=== PATIENT | female | born 1985 | race Caucasian/White ===

== ENCOUNTER 2020-09-23 15:55 | Outpatient (CLI) | payer OTHER, SELFPAY ==
--- NOTE | ~2020-09-23 | XR_ITS ---
XR lumbar spine 2-3V DATE: 09/23/2020 16:31 INDICATION: Right low back pain radiating to calf for 4 weeks. No injury. TECHNIQUE: AP, lateral, coned lateral lumbosacral views COMPARISON: None FINDINGS: Normal alignment of lumbar spine. No fracture or bone destruction, spondylolisthesis. The i ncluded lower thoracic and lumbar pedicles are intact. There is mild degenerative disc disease at T11-12. There is moderate relative diminished height at L5-S1 interspace compared to the normal lumbar inters paces. The sacroiliac joints are normal. IMPRESSION: Moderate relative diminished height at L5-S1 space Reviewed, dictated and finalized at location A.
--- NOTE | ~2020-09-23 | US_ITS ---
US venous doppler LE RT DATE: 09/23/2020 16:39 INDICATION: Right calf pain TECHNIQUE: Real-time and color flow imaging and Doppler analysis of the right lower extremity veins COMPARISON: None FINDINGS: The right greater saphenous vein is patent. There is spontaneous and phasic flow and normal augmentation and color flow signal and normal compression of the veins of the right lower extremity. IMPRESSION: No evidence of deep venous thrombosis of right leg Reviewed, dictated and finalized at Location [facility]. Reviewed, dictated and finalized at location A.
== END 2020-09-23 15:56 | disposition home or self-care (01) ==
LOC: ANHIMG 16:07
PROVIDERS: PCP Physician Assistant; Visit Provider Physician Assistant
DX: M79.661 Pain in right lower leg (principal); M54.16 Radiculopathy, lumbar region
CPT/HCPCS: 72100; 93971

== ENCOUNTER 2021-08-25 16:38 | Outpatient (RCR) | payer OTHER, SELFPAY ==
[2021-07-16 09:53] VITALS: BP 111/66; PULSE 80
[2021-07-20 16:22] VITALS: BP 106/68; PULSE 97
[2021-07-27 16:50] VITALS: BP 110/69; PULSE 87
[2021-08-02 17:23] VITALS: BP 116/64; PULSE 87
[2021-08-12 13:01] VITALS: BP 114/71; PULSE 78
[2021-08-16 16:41] VITALS: BP 110/71; PULSE 95
[2021-08-16 18:56] VITALS: BP 110/71; PULSE 95
[2021-08-25 17:02] VITALS: BP 118/65; PULSE 82
== END 2021-10-14 23:59 | disposition home or self-care (01) ==
LOC: ANHOBOP 16:38
PROVIDERS: PCP Physician Assistant; Visit Provider Obstetrics & Gynecology
DX: O24.419 Gestational diabetes mellitus in pregnancy, unspecified control (principal); Z3A.32 32 weeks gestation of pregnancy; Z3A.33 33 weeks gestation of pregnancy; Z3A.34 34 weeks gestation of pregnancy; Z3A.35 35 weeks gestation of pregnancy; Z3A.36 36 weeks gestation of pregnancy; Z3A.37 37 weeks gestation of pregnancy; Z3A.38 38 weeks gestation of pregnancy
CPT/HCPCS: 59025

== ENCOUNTER 2021-08-29 05:04 | Inpatient (IN) | payer OTHER, SELFPAY ==
[2021-08-29] VITALS (59 sets, daily range): BP systolic 51–159; BP diastolic 23–131; PULSE 63–140; RESP 16–18; TEMP 36.4–37.5; O2SAT 97–100; BMI 27.3
--- OUTSIDE RECORDS SUMMARY | 2021-08-29 05:13 | XMS_ITS ---
:1985 Author Care Team Providers Name Role Phone Bronwyn Beasley Primary Care Provider Unavailable Allergies Code Code System Name Reaction Severity Status Onset NKDA ? Medications Name Status Start Date Stop Date ? ? azithromycin 250 mg tablet Completed ? 12/27 fluconazole 150 mg tablet Completed ? 2019 Low-Ogestrel (28) 0.3 mg-30 mcg tablet Active ? Not available ofloxacin 0.3 % eye drops Completed ? 2019 omeprazole 20 mg capsule,delayed Completed ? 12/28/2019 release Problems Name Status Onset Date Source ? Anemia Active 12/28/2019 ? Procedures Date Name Performed by ? ? Extraction of [place] Tooth Information n ot available Notes: 2014 ? Upper Gi Endoscopy Performed Information not available Notes: ~2018 Results Lab Results Date Name Specimen Result Interpretation Description Value Range Status Address ? 01/07/2020 Lipid ? Cholesterol, 174 mg/dL <200 Fin al [facility], Total mg/dL Diagnostic s - Blood [place]: [id number] [address] ? ? Low HDL 41 mg/dL > or = Final [facility] Cholesterol 50 Diagn ostics
--- OUTSIDE RECORDS SUMMARY | 2021-08-29 05:13 | XMS_ITS ---
:1985 Author Care Team Providers Name Role Phone Bronwyn Beasley Primary Care Provider Unavailable Allergies Code Code System Name Reaction Severity Status Onset NKDA ? Medications Name Status Start Date Stop Date ? ? amoxicillin 875 mg-potassium clavulanate 125 mg tablet Active ? Not available TAKE 1 TABLET BY MOUTH EVERY 12 HOURS azithromycin 250 mg tablet Completed ? 12/27 cephalexin 500 mg capsule Completed ? 2018 Cryselle (28) Completed 01/15/2019 07/10/2019 famotidine 40 mg tablet Completed ? 07/10/19 20 Take 1 tablet every day by oral route with meals. fluconazole 150 mg tablet Completed ? 2019 Jencycla 0.35 mg tablet Completed ? 01/16/20 19 Low-Ogestrel (28) 0.3 mg-30 mcg Completed ? 09/23/2020 tablet methocarbamol 750 mg tablet Active ? Not available TAKE 1 TABLET BY MOUTH THREE TIMES DAILY NEEDED moxifloxacin 0.5 % eye drops Active ? Not available INSTILL 1 DROP INTO AFFECTED EYE(S) THREE TIMES DAILY ofloxacin 0.3 % eye drops Completed ? 2019 omeprazole 20 mg Completed ? 01/15/2019 capsule,delayed release prednisone 50 mg tablet Completed ? 09/24/19 21 Take 1 tablet every day by oral route for 5 days. Problems Name Status Onset Date Source ? Heartburn Active 07/09/2019 History Anemia Active 12/28/2019 History Procedures Date Name Performed by ?
--- OUTSIDE RECORDS SUMMARY | 2021-08-29 05:13 | XMS_ITS ---
:1985 Author Care Team Providers Name Role Phone Bronwyn Beasley Primary Care Provider Unavailable Allergies Code Code System Name Reaction Severity Status Onset NKDA ? Medications Name Status Start Date Stop Date ? ? azithromycin 250 mg tablet Completed ? 06/19 TAKE 2 TABLETS BY MOUTH ON DAY 1 AND TH EN TAKE 1 TABLET BY MOUTH ONCE A DAY ON DAY 2 THROUGH DAY 5 cephalexin 500 mg capsule Completed ? 2018 Cryselle (28) Completed ? 07/10/2019 famotidine 40 mg tablet Completed ? 07/10/19 20 Take 1 tablet every day by oral route with meals. fluconazole 150 mg tablet Completed ? 2019 Jencycla 0.35 mg tablet Completed ? 01/16/20 19 Low-Ogestrel (28) 0.3 mg-30 mcg tablet Active ? Not available ofloxacin 0.3 % eye drops Completed ? 2019 omeprazole 20 mg capsule,delayed Completed ? 01/15/2019 release prednisone 50 mg tablet Active ? Not avai lable Take 1 tablet every day by oral route for 5 days. Problems Name Status Onset Date Source ? Heartburn Active 07/09/2019 ? Procedures Date Name Performed by ? 03/11/2019 XR, [facility], [facility] [address] [place] [address] ([address]) 06/24/2019 US, Gallbladder Farhan
--- NOTE | 2021-08-29 05:34 | LDADM ---
This patient, Bryanna Davenport, was admitted to Labor/Delivery/Recovery 104 on 08/29/21 at 05:04. Plans for labor, pain management and were discussed with patient. Patient/family oriented to hospital policies and general routines including ID bracelet, bed and alarms, visiting hours, pain management, procedures, bathroom and other care routines, personal items, smoking policy, room service/diet and guest tray routines, security routines, and visiting hours. Patient/Family are encouraged to report perceived risks to care and to ask questions if they do not understand what they are told or what they should do. See OBIX for further documentation.
[2021-08-29 05:46] LABS: Basophils Percent Auto 0.3 % (0.2-1.2); Eosinophils Absolute Auto 0.1 K/mm3 (0-0.3); Eosinophils Percent Auto 1.3 % (0-4.4); Hematocrit 37.2 % (37.0-47.0); Hemoglobin 12.1 g/dL (12.0-15.0); Immature Granulocyte Absolute 0.05 K/mm3 (0.00-0.031); Immature Granulocyte Percent A 0.6 % (0-0.5); Lymphocytes Absolute Auto 1.92 K/mm3 (0.9-3.2); Lymphocytes Percent Auto 22.2 % (18.3-44.2); Mean Corpuscular HGB Conc 32.5 g/dl (32-36); Mean Corpuscular Hemoglobin 28.3 pg (26-34); Mean Corpuscular Volume 87.1 fl (80-100); Mean Platelet Volume 10.1 fl (7.4-10.4); Monocytes Absolute Auto 0.6 K/mm3 (0.1-0.6); Monocytes Percent Auto 7.2 % (2.6-8.5); Neutrophils Absolute Auto 5.9 K/mm3 (1.3-6.7); Neutrophils Percent Auto 68.4 % (45.5-73.1); Platelet Count Result 188 k/mm3 (150-375); Red Blood Count 4.27 M/mm3 (4.2-5.4); Red Cell Distribution Width 19.7 % (11.5-14.5); White Blood Count 8.6 K/mm3 (4.5-10.0)
[2021-08-29] MEDS: OXYTOCIN 30 UNITS/NS 500 ML 30 UNITS/500 ML BAG IV CONT (05:47)
[2021-08-29] MEDS: LACTATED RINGERS 1,000 ML 125 ML IV CONT (05:48)
--- NOTE | 2021-08-29 06:30 | P.PNAN_ITS ---
Anes - Eval Pre Procedure Procedure: labor epidural Date/Time: 08/29/21 06:30 Surgeon: amanda Preop Diagnosis: pain during labor Pre Op Diagnosis: IOL Patient Data Age: 35 Gender: F Height: 1.57 m Weight: 68 kg Last Vital Signs Pulse 88 08/29/21 06:15 BP 106/75 08/29/21 06:15 Allergies Allergy/AdvReac Type Severity Reaction Status Date / Time No Known Allergies Allergy Verified 11/08/15 13:53 Home Medications Medication Instructions Recorded Confirmed Type glyburide 2.5 mg PO ONCE 08/29/21 08/29/21 History Laboratory Tests 08/29/21 08/29/21 05:33 05:33 WBC 8.6 K/mm3 K/mm3 (4.5-10.0) RBC 4.27 M/mm3 M/mm3 (4.2-5.4) Hgb 12.1 g/dL g/dL (12.0-15.0) Hct 37.2 % % (37.0-47.0) MCV 87.1 fl fl (80-100) MCH 28.3 pg pg (26-34) MCHC 32.5 g/dl g/dl (32-36) RDW 19.7 % H % (11.5-14.5) Plt Count 188 k/mm3 k/mm3 (150-375) MPV 10.1 fl fl (7.4-10.4) Immature Gran % (Auto) 0.6 % H % (0-0.5) Neut % (Auto) 68.4 % % (45.5-73.1) Lymph % (Auto) 22.2 % % (18.3-44.2) [place] % (Auto) 7.2 % % (2.6-8.5) Eos % (Auto) 1.3 % % (0-4.4) Baso % (Auto) 0.3 % % (0.2-1.2) Lymph # (Auto) 1.92 K/mm3 K/mm3 (0.9-3.2) [place] # (Auto) 0.6 K/mm3 K/mm3 (0.1-0.6) Eos # (Auto) 0.1 K/mm3 K/mm3 (0-0.3) Baso # (Auto) 0.0 K/mm3 K/mm3 (0.0-0.1) Abs Immat Gran (auto) 0.05 K/mm3 H K/mm3 (0.00-0.031) Absolute Neuts (auto) 5.9 K/mm3 K/mm3 (1.3-6.7) Absolute Nucleated RBC 0.0 K/mm3 K/mm3 (0.0-0.012) Nucleated RBC % 0.0 % % (0.0-0.2) RPR Pending Patient hx anesthesia problems: none Family hx anesthesia problems: none Results Review: All pre-operative results and documents have been reviewed as part of the pre-operative evaluation. [facility] Past Medical History Medical History (Updated 08/29/21 @ 06:31 by Mehnaz De Jesus CRNA) Gestational diabetes mellitus (GDM) affecting Intrauterine Family History Family History Grandparent Family history of malignant neoplasm of brain Family history of malignant neoplasm of breast Social History Social History (Updated 08/29/21 @ 05:40 by Elizabeth Mckenzie, RN) Smoking status: Never smoker Second hand tobacco smoke exposure: No Alcohol intake: former Substance use: never Substance use type: does not use Living arrangements: with family Occupation/Education: occupation Gender identity (if verbalized by the patient): Female Sexual Orientation (if Verbalized by the Patient): Straight or Heterosexual Spiritual care concerns: No Agree to blood products: Yes Exam Day of Procedure 08/29/21 06:30
[2021-08-29 06:45] LABS: Rapid Plasma Reagin Non-Reactive (NonReactive)
[2021-08-29 07:00] LABS: Glucose Point of Care 98 mg/dl (65-105)
--- NOTE | 2021-08-29 10:19 | P.HP_ITS ---
Obstetrics - Admit Note Admission Note: record reviewed. Additions to the history and/or subsequent changes in the physical findings follow. 35 y/o at 39 3/7 weeks here for induction of labor. GDM, well- controlled. GBS neg. AVSS NST reactive TOCO: contractions every 4-5 min ABD soft, nontender, gravid, vertex EXT nontender Cervix 3/50/-2. AROM with clear fluid. Accuchecks wnl. A: IUP at term with favorable cervix, GDM P: Oxytocin. Monitor blood glucose. Anticipate .
[2021-08-29 11:41] LABS: Glucose Point of Care 78 mg/dl (65-105)
[2021-08-29] MEDS: LIDOCAINE HCL 1% PF 30 ML VIAL (13:00)
--- NOTE | 2021-08-29 13:12 | PM.OBPRVD ---
OB - Delivery Note Procedure Delivery date: 08/29/21 Procedure: Induction of labor with Events: Gestational Diabetes Induction method: Per Pitocin Protocol Delivery augmentation: Rupture of Membranes Delivery monitor: External FHT and External Uterine Route of delivery: Laceration Description: Perineal - 2nd Degree Delivery repair: vicryl (3-0) Specimen: Yes (cord blood, placenta) Quantitative Blood Loss (ml): 185 Anesthesia type: Epidural Disposition: PACU Complications: None Narrative: 35 y/o at 39 3/7 weeks gestation who presented to the hospital for induction of labor. Oxytocin was administered intravenously. Accuchecks were normal. Amniotomy was performed with return of clear fluid. She received an epidural for pain control. Her labor progressed rapidly and her cervix dilated completely. She pushed with good effort and delivered the infant's head to the perineum. A loose nuchal cord was reduced and the body delivered. The nose and mouth were bulb suctioned. After a delay, the cord was clamped and cut. The was handed off the field. Cord blood was collected. The placenta delivered spontaneously and was grossly normal in appearance. The usual 3 vessel cord was noted. A second degree midline perineal laceration was sustained. This was reapproximated using 3 0 Vicryl in the usual layered fashion. Excellent hemostasis resulted as did excellent reapproximation of the normal anatomy. Needle and instrument counts were correct. The patient was taken to recovery room in stable condition. The infant went to the nursery in stable condition. I was present and scrubbed for the entire delivery. Baby Date of : 08/29/21 Time of : 12:51 Weeks of gestation at delivery: 39 gender: Female Weight (pounds): 7 Weight (ounces): 14 presentation: vertex position: Left Occiput Anterior Placenta delivery description: Spontaneous and Normal Configuration Cord Vessel Description: 3 Vessels, Nuchal Cord and Delayed Cord Clamping score one minute: 8 score five minutes: 9
--- NOTE | 2021-08-29 13:16 | P.DS_ITS ---
DS: Admitting Diagnosis Discharge Date 08/30/21 Admitting Diagnosis IUP at 39 3/7 weeks A2DM DS: Discharge Diagnosis Discharge Diagnosis (1) Gestational diabetes mellitus (GDM) affecting : Code(s): O24.419 - Gestational diabetes mellitus in , unspecified control Status: Acute (2) Intrauterine : Code(s): Z34.90 - Encounter for supervision of normal , unspecified, unspecified trimester Status: Acute (3) (normal spontaneous vaginal delivery): Code(s): O80 - Encounter for full-term uncomplicated delivery Status: Acute OB - DS: Summary OB Procedures : None OB Procedures Intrapartum: Spontaneous Vag Delivery OB Procedures: : None DS: Data Data Completed and Pending Labs on day of discharge: Labs from last 24 hours 08/29/21 08/29/21 08/29/21 11:38 06:57 05:33 WBC RBC Hgb Hct MCV MCH MCHC RDW Plt Count MPV Immature Gran % (Auto) Neut % (Auto) Lymph % (Auto) [place] % (Auto) Eos % (Auto) Baso % (Auto) Lymph # (Auto) [place] # (Auto) Eos # (Auto) Baso # (Auto) Abs Immat Gran (auto) Absolute Neuts (auto) Absolute Nucleated RBC Nucleated RBC % POC Capillary Glucose 78 98 RPR Blood Type A Positive Antibody Screen Negative 08/29/21 08/29/21 05:33 05:33 WBC 8.6 RBC 4.27 Hgb 12.1 Hct 37.2 MCV 87.1 MCH 28.3 MCHC 32.5 RDW 19.7 H Plt Count 188 MPV 10.1 Immature Gran % (Auto) 0.6 H Neut % (Auto) 68.4 Lymph % (Auto) 22.2 [place] % (Auto) 7.2 Eos % (Auto) 1.3 Baso % (Auto) 0.3 Lymph # (Auto) 1.92 [place] # (Auto) 0.6 Eos # (Auto) 0.1 Baso # (Auto) 0.0 Abs Immat Gran (auto) 0.05 H Absolute Neuts (auto) 5.9 Absolute Nucleated RBC 0.0 Nucleated RBC % 0.0 POC Capillary Glucose RPR Non-reactive Blood Type Antibody Screen Discharge Plan Discharge Attending physician on discharge: Cortez Peralta Discharging Clinician: Cortez Peralta Patient Disposition: Home, Self-Care Activity: pelvic rest Diet: regular Discharge Instructions: Call or return if temperature above 100.4? F, increased abdominal pain, increased vaginal bleeding or any new problems. Stand Alone Forms: General Discharge Information Follow-up/Referrals: Cortez Peralta MD [Physician] - 6 Weeks Discharge Medications: New ibuprofen 600 mg tablet 600 mg PO Q6H PRN (Reason: cramps) Qty: 30 RF: 0 Discontinued glyburide 5 mg tablet 2.5 mg PO ONCE RF: 0 Date of admission: 08/29/21 05:04 Primary Care Provider: Ramos,Bronwyn Admitting Provider: Cortez Peralta Attending physician on admission: Cortez Peralta Condition: Stable
[2021-08-29] MEDS: OXYTOCIN 30 UNITS/NS 500 ML 30 UNITS/500 ML BAG 125 UNITS IV CONT (13:26)
--- NOTE | 2021-08-29 15:39 | PC.NURSE ---
Patient transferred to post room #283 per wheelchair from labor and delivery. Support person present. Oriented to unit, room, information board, rooming in, admission packet and security measures. Patient verbalizes understanding.
[2021-08-29] MEDS: IBUPROFEN 600 MG TABLET PO (23:37)
[2021-08-30 04:30] VITALS: BP 112/67; PULSE 74; RESP 18; TEMP 36.6; O2SAT 98
[2021-08-30 05:04] LABS: Hematocrit 33.2 % (37.0-47.0); Hemoglobin 10.6 g/dL (12.0-15.0)
[2021-08-30 07:13] VITALS: BP 116/68; PULSE 67; RESP 16; TEMP 36.2; O2SAT 99
[2021-08-30] MEDS: DOCUSATE SODIUM 100 MG CAPSULE PO ×2 (07:20→17:02)
[2021-08-30] MEDS: IBUPROFEN 600 MG TABLET PO ×2 (07:20→17:02)
[2021-08-30] MEDS: MULTIVIT/MIN/PREN/FOL AC/IRON TABLET 1 TAB PO (07:20)
--- NOTE | 2021-08-30 07:21 | PC.NURSE ---
On 08/30/21, the student, Miryam Llanes, provided care and completed [facility] documentation on this patient. I have reviewed the student's documentation and agree with the findings.
--- NOTE | 2021-08-30 08:24 | PC.NURSE ---
0810 - Consulted with patient to assess needs related to . Mother led conversation with her experience with feeding baby so far. Mother works well with her . Reviewed good handwashing when working with , breast, nipples and how to protect the nipples with a deep latch. Encouraged understanding the benefits of skin to skin, responding to feeding cues, frequencies of feeding 8-12 times in 24 hours (approximately 2-3 hours), duration of feedings, milk production, intake/output feeding sheet and signs of adequate intake. Discussed stimulating with skin to skin, hand expressing colostrum, touch and talking to infant to encourage eating at the breast. Reviewed positioning and alignment, supporting breast, off-centered (asymmetrical latch) and leading with the chin with big open wide gape. latched optimally to the right breast in cradle position independently. Education given to mother of how to visualize suck/swallow ratios and drinking at the breast. Infant was able to maintain latch without discomfort to mother. Nipple care with using a optimal big wide open deep latch. Resources used to facilitate learning were used from the visual handout and mom and baby guide. RN Mother voiced understanding responding to feeding cues, may need to stimulating infant approximately 2-3 hours from the start of the last feeding, calling for assistance if the does not latch or there discomfort . Reported to primary RN.
--- NOTE | 2021-08-30 08:58 | WPDANLDPN2 ---
Anes-Prog Note L&D Date/Time: 08/30/21 08:58 Comfortable throughout: labor and delivery Neuraxial method: epidural Epidural/Spinal procedure site: clean & non-tender Neuro status: Neuro function grossly intact. Cardiovascular status: normal Respiratory status: normal Airway patency: baseline Mental status: baseline Post-Op hydration status: normal Vital Signs: Last Vital Signs Temp 36.2 C L 08/30/21 07:13 Pulse 67 08/30/21 07:13 Resp 16 08/30/21 07:13 BP 116/68 08/30/21 07:13 Pulse Ox 99 08/30/21 07:13 Pain score (VAS): 3 I/O: Intake & Output 08/29/21 08/30/21 08/30/21 23:59 07:59 15:59 Intake Total 500 Balance 500 Post-procedural complaints: none Patient feedback: Patient satisfied with anesthetic care.
[2021-08-30 12:07] VITALS: BP 105/69; PULSE 71; RESP 18; TEMP 36.7; O2SAT 98
--- NOTE | 2021-08-30 15:45 | PM.OBPNVD ---
OB - PN: Subj Subjective Date/time seen: 08/30/21 15:45 Narrative: Pain OK. Would like to go home. OB - PN: Obj Data Labs CBC & Chem 7: 08/30/21 04:42 Labs: Laboratory Results - last 24 hr 08/30/21 04:42 Hgb 10.6 L Hct 33.2 L OB - PN A/P Plan Comments: A: PPD#1, doing well. P: Home to f/u 6 weeks. Exam Psych: Other: AVSS ABD soft, nontender, fundus firm EXT nontender
[2021-08-31 09:38] VITALS: BP 112/70; PULSE 66; RESP 20; TEMP 36.8; O2SAT 100
== END 2021-08-30 17:26 | disposition home or self-care (01) | DRG 807 ==
LOC: ANHLDR 13:19 → ANHOB2 15:48
PROVIDERS: Admitting Provider Obstetrics & Gynecology; PCP Physician Assistant; Visit Provider Obstetrics & Gynecology
DX: O24.429 Gestational diabetes mellitus in childbirth, unspecified control (principal); Z37.0 Single live birth; Z3A.39 39 weeks gestation of pregnancy; O62.3 Precipitate labor; O70.1 Second degree perineal laceration during delivery; O69.81X0 Labor and delivery complicated by cord around neck, without compression, not applicable or unspecified
CPT/HCPCS: 36415; 82948; 85014; 85018; 85025; 86592; 86850; 86900; 86901; 88307; A9270; J2590; J2795; J7120

== ENCOUNTER 2022-08-11 13:56 | Emergency (ER) | payer OTHER, SELFPAY ==
[2022-08-11 14:08] VITALS: BP 133/65; PULSE 94; RESP 16; TEMP 37.6; O2SAT 99
--- NOTE | 2022-08-11 14:36 | ED.URI ---
HPI - URI/Sore Throat General Chief Complaint: Upper Respiratory Infection Stated Complaint: fever, sore throat Time Seen by Provider: 08/11/22 14:15 Source: patient, RN notes reviewed and old records reviewed Mode of arrival: ambulatory Limitations: no limitations History of Present Illness HPI Narrative: 36 year old patient presents to [facility] care with complaints of sore throat and fevers and body aches since . Patient reports that her family was treated for strep throat 3 weeks ago with Amoxicillin for 10 days and she started again with the sore throat again o with fevrs and body aches and her son also tested positive for strep MD elicited complaint: fever, sore throat and other (body aches) Pertinent past history: other (strep throat) Related Data Allergies Allergy/AdvReac Type Severity Reaction Status Date / Time No Known Allergies Allergy Verified 08/11/22 14:03 Review of Systems Review of Systems: CONSTITUTIONAL:reports malaise, chills, sweats, or fever. EYES: Denies visual changes, redness, or discharge. ENT: Reports rhinorrhea, congestion, sinus pain, no otalgia positive for sore throat. CARDIOVASCULAR: Denies chest pain, palpitations, or edema. RESPIRATORY: Reports cough.? Denies dyspnea. GASTROINTESTINAL: Denies abdominal pain, nausea, vomiting, diarrhea SKIN: Denies rash or itching. MUSCULOSKELETAL: Denies myalgia. NEUROLOGIC: Denies headache. All systems reviewed & are unremarkable except as noted in HPI and below PMFSH Past Medical History Medical History Gestational diabetes mellitus (GDM) affecting Intrauterine Family History Family History Grandparent Family history of malignant neoplasm of brain Family history of malignant neoplasm of breast Social History Social History Smoking status: Never smoker Second hand tobacco smoke exposure: No Alcohol intake: former Substance use: never Substance use type: does not use Living arrangements: with family Occupation/Education: occupation Gender identity (if verbalized by the patient): Female Sexual Orientation (if Verbalized by the Patient): Straight or Heterosexual Spiritual care concerns: No Agree to blood products: Yes Comments At time of signature, agree with nursing past medical, surgical, social and family history. There is no relevant family history pertinent to the presenting complaint Exam Narrative: GENERAL: Well-appearing, well-nourished, and in no acute distress. HEAD: Normocephalic EYES: PERRLA, conjunctivae clear ENT: Nares clear, turbinates edematous and erythematous, clear discharge. Mucous membranes moist. TM pearly morocho with dull light reflex bilaterally; no tragal tenderness. Oropharynx erythematous without lesions. Tonsils red enlarged and without exudate, no drooling, no hoarseness, no trismus, uvula midline. NECK: Supple. lymphadenopathy CHEST: Clear to auscultation, breath sounds equal. No wheezing, rhonchi, rales, or stridor. No respiratory distress, speaks in full sentences. rare cough with SAO2 99% on room air HEART: Regular rate and rhythm. No murmur heard. SKIN: Warm, dry, no rash. NEURO: Alert and oriented x3. PSYCH: Normal mood and affect Course Course Emergency Course: Patient is aware of diagnosis, understands and agrees to treatment plan.? Anticipatory guidance given.? Patient agrees to follow-up as directed and is aware of reasons to seek care at the emergency department. Portions of this record may have been created with voice recognition software Level of Care: Express Care Visit Vital Signs Vital signs: Vital Signs Temperature 37.6 C 08/11/22 14:08 Pulse Rate 94 08/11/22 14:08 Respiratory Rate 16 08/11/22 14:08 Blood Pressure 133/65
== END 2022-08-11 14:40 | disposition home or self-care (01) ==
PROVIDERS: Emergency Provider Registered Nurse; PCP Physician Assistant
DX: J02.0 Streptococcal pharyngitis (principal)
CPT/HCPCS: 87880; 99213; G0463

== ENCOUNTER 2023-09-12 17:18 | Emergency (ER) | payer OTHER, SELFPAY ==
--- NOTE | 2023-09-12 17:20 | ED.URI ---
HPI - URI/Sore Throat General Chief Complaint: Upper Respiratory Infection Stated Complaint: Sore Throat/Stomach Pain/Headache Time Seen by Provider: 09/12/23 17:20 Source: patient Mode of arrival: ambulatory Limitations: no limitations History of Present Illness HPI Narrative: Patient is a 37-year-old female who presents with sore throat, abdominal pain and headache that started yesterday. Patient has taken [id number] medicine with no relief. Reports son and recently diagnosed with strep having the same symptoms. Denies any fever, chills, nausea, vomiting, diarrhea. Related Data Allergies Allergy/AdvReac Type Severity Reaction Status Date / Time No Known Allergies Allergy Verified 09/12/23 17:25 Review of Systems Review of Systems: All systems reviewed & are unremarkable except as noted in HPI and below Constitutional: Constitutional: Denies body ache(s), Denies chills, Denies fatigue, Denies fever(s), Reports headache(s), Denies malaise and Denies weakness Eyes: Eyes: Denies blurry vision, Denies itchy eyes and Denies loss of vision ENT: Denies otalgia, Denies headache(s), Denies nasal congestion, Denies sinus pain and Reports sore throat Cardiovascular: Cardiovascular: Denies chest pain, Denies irregular heart rhythm and Denies dyspnea Respiratory: Respiratory: Denies cough and Denies dyspnea Gastrointestinal: Gastrointestinal: Reports abdominal pain, Denies diarrhea, Denies nausea and Denies vomiting Musculoskeletal: Musculoskeletal: Denies back pain, Denies myalgias and Denies arthralgias Integumentary/Breasts: Skin/Breast: Denies pruritus and Denies rash Neurologic: Denies headache(s), Denies loss of vision and Denies weakness Psychiatric: Psychiatric: Reports no additional psychiatric complaints Endocrine: Endocrine: Denies fatigue Allergic/Immunologic: Allergic/Immunologic: Denies itchy eyes PMFSH Past Medical History Medical History Gestational diabetes mellitus (GDM) affecting Intrauterine Family History Family History Grandparent Family history of malignant neoplasm of brain Family history of malignant neoplasm of breast Social History Social History Smoking status: Never smoker Second hand tobacco smoke exposure: No Alcohol intake: former Substance use: never Substance use type: does not use Living arrangements: with family Occupation/Education: occupation Gender identity (if verbalized by the patient): Female Sexual Orientation (if Verbalized by the Patient): Straight or Heterosexual Spiritual care concerns: No Agree to blood products: Yes Comments At time of signature, agree with nursing past medical, surgical, social and family history. There is no relevant family history pertinent to the presenting complaint. Exam Const: General: cooperative, healthy appearing, comfortable, no acute distress and well nourished Nutritional Appearance: well nourished Orientation/consciousness: patient oriented x3 Limitations: no limitations HENMT: Head: normal to inspection, normocephalic and atraumatic Ears: hearing grossly normal bilaterally, external ears normal, TM's normal bilaterally, no periauricular adenopathy and Abnormal EAC present excessive cerumen bilateral Face/Nose/Sinus: Normal external nose present, Normal nasal mucous membranes and turbinates present, normal facial exam, sinuses nontender and face symmetric Face and sinus: normal facial exam, sinuses nontender and face symmetric Mouth: Yes Normal oral and palatal mucosa present, Yes lip normal, Yes tongue normal, Yes Normal salivary glands and ducts present, Yes oropharynx normal and Yes moist mucous membranes Teeth and gingiva: dentition normal Throat: uvula midline, abnormal tonsil bilateral erythema and hypertrop
[2023-09-12 17:30] VITALS: BP 113/83; PULSE 65; RESP 16; TEMP 36.6; O2SAT 100
== END 2023-09-12 17:48 | disposition home or self-care (01) ==
PROVIDERS: Emergency Provider Nurse Practitioner Family; PCP Physician Assistant
DX: J02.9 Acute pharyngitis, unspecified (principal)
CPT/HCPCS: 87880; 99213; G0463

== ENCOUNTER 2024-05-21 12:33 | Outpatient (CLI) | payer OTHER, SELFPAY ==
--- NOTE | 2024-05-21 12:48 | ECHO_ITS ---
Patient Info Name: Bryanna Davenport Age: 38 years : 1985 Gender: Female Ht: 62 in Wt: 141 lbs BSA: 1.69 m2 HR: 61 bpm BP: 118 / 78 mmHg Technical Quality: Good Exam Date: 05/21/2024 12:58 PM Exam Location: Echo Lab Patient Status: Outpatient Admit Date: 05/21/2024 Staff Ordering Physician: Bart Bryant MD Appliance Adjuster: Jacklyn Bonilla RDCS Attending Provider: Bart Bryant MD Exam Type: CA echo doppler color flow Study Info Indications R01.1 - Cardiac murmur, unspecified Complete two-dimensional, color flow and Doppler transthoracic echocardiogram is performed. Strain analysis performed. Summary 1. Complete two-dimensional, color flow and Doppler transthoracic echocardiogram is performed. 2. Left ventricular chamber dimension is mildly enlarged. 3. Left ventricular systolic function is normal, estimated at 55-60%. 4. The left ventricular diastolic function is normal. 5. E/e' 6 is not elevated. 6. Global longitudinal strain is normal at -18.6%. 7. There is trace mitral valve regurgitation. 8. There is trace tricuspid valve regurgitation. 9. No pulmonary hypertension, estimated pulmonary arterial systolic pressure is 30 mmHg. 10. There is trace pulmonic regurgitation. Left Ventricle E/e' 6 is not elevated. Global longitudinal strain is normal at -18.6%. Left ventricular chamber dimension is mildly enlarged. Left ventricular systolic function is normal, estimated at 55-60%. The left ventricular diastolic function is normal. Right Ventricle Right ventricular chamber dimension is normal. Right ventricular systolic function is normal. Left Atria Left atrial chamber dimension is normal. Right Atria Right atrial chamber dimension is normal. Aortic Valve The aortic valve is trileaflet. There is no aortic valve stenosis. There is no aortic valve regurgitation. Pulmonic Valve There is trace pulmonic regurgitation. Mitral Valve There is no mitral valve stenosis. There is trace mitral valve regurgitation. Tricuspid Valve There is trace tricuspid valve regurgitation. No pulmonary hypertension, estimated pulmonary arterial systolic pressure is 30 mmHg. Pericardium/Pleural There is no pericardial effusion. Inferior Vena Cava Normal inferior vena cava with >50% collapse upon inspiration consistent with normal right atrial pressure, 5 mmHg. Aorta The aortic root size at the sinus of Valsalva is normal. Left Ventricular Outflow Tract Name Value Normal LVOT 2D LVOT Diameter 1.9 cm LVOT Doppler LVOT Peak Gradient 6 mmHg LVOT Mean Gradient 3 mmHg LVOT VTI 24 cm LVOT VTI/AV VTI Ratio 0.8 LVOT Stroke Volume 65 ml LVOT CO 4.1 l/min LVOT CI 2.5 l/min/m2 Pulmonic Valve Name Value Normal RVOT Doppler RVOT Peak Gradient 2 mmHg PV Doppler PV Peak Gradient 4 mmHg Mitral Valve Name Value Normal MV Doppler MV Decel Terrell 411 cm/s2 MV PHT 73 ms MV Area (PHT) 3.0 cm2 4.0-5.0 MV Diastolic Function MV E Peak Velocity 103 cm/s MV A Peak Velocity 40 cm/s MV E/A 2.6 MV Decel Time 252 ms Tricuspid Valve Name Value Normal TV Regurgitation Doppler TR Peak Velocity 251 cm/s TR Peak Gradient 17 mmHg Estimated PAP/RSVP RA Pressure 5 mmHg <=5 PA Systolic Pressure 30 mmHg <36 RV Systolic Pressure 30 mmHg <36 Aorta Name Value Normal Ascending Aorta Ao Root Diameter (MM) 2.4 cm Ao Root Diam Index (MM) 1.4 cm/m2 Aortic Valve Name Value Normal AV Doppler AV Peak Velocity 147 cm/s AV Peak Gradient 9 mmHg AV Mean Gradient 5 mmHg AV VTI 29 cm AV Area (Cont Eq VTI) 2.3 cm2 >=3.0 AV Area (Cont Eq Morgan) 2.3 cm2 AV Regurgitation 2D LVOT Area 2.7 cm2 Ventricles Name Value Normal LV Dimensions 2D/MM IVS Diastolic Thickness (2D) 0.8 cm 0.6-1.0 IVS Diastole Thickness (MM) 0.6 cm 0.6-0.9 LVID Diastole (2D) 4.9 cm 3.8-5.2 LVID Diastole (MM) 5.2 cm 3.8-5.2 LVIW Diastolic Thickness (2D) 0.7 cm 0.6-0.9 LVIW Diastolic Thickness (MM) 0.7 cm 0.6-0.9 LVID Systole (2D) 3.2 cm 2.2-3.5 LVID Systole (MM) 2.8 cm 2.2-3.5 LVOT Diameter 1.9 cm LV Mass (2D Cubed) 121.24 g 67.00-162.00 LV Mass Index (2D Cubed) 72 g/m2 43-95 Relative Wall Thickness (2D) 0.28 LV Mass (MM Cubed) 115.13 g 67.00-162.00 LV Mass Index (MM Cubed) 68 g/m2 43-95 Relative Wall Thickness (MM) 0.28 LV Fractional Shortening/Ejection Fraction 2D/MM LV Fractional Shortening (2D) 35 % 27-45 LV Fractional Shortening (MM) 46 % 27-45 LV EF (MM Teicholz) 78 % 54-74 LV EF (2D Teicholz) 64 % 54-74 LV Diastolic Volume (4C MOD) 75 ml LV EF (4C MOD) 55 % LV Diastolic Volume (2C MOD) 81 ml LV EF (2C MOD) 55 % LV Diastolic Volume (BP MOD) 78 ml 46-106 LV Diastolic Volume Index (BP MOD) 46 ml/m2 29-61 LV Systolic Volume (BP MOD) 35 ml 14-42 LV Systolic Volume Index (BP MOD) 21 ml/m2 8-24 LV EF (BP MOD) 55 % 54-74 LV Diastolic Length (4C) 8.0 cm LV Systolic Length (4C) 7.1 cm LV Stroke Volume (4C MOD) 41 ml Atria Name Value Normal LA Dimensions LA Dimension (MM) 2.8 cm 2.7-3.8 LA Volume (4C A-L) 35 ml LA Volume (BP A-L) 40 ml RA Dimensions RA Area (4C) 12.9 cm2 <=18.0 EchoPAC Name Value Normal AutoEF LVCO_BiP_Q (Jmiv5FCC) 3.5 l/min LVEF_BiP_Q (Wmkb8IAK) 55 % LVSV_BiP_Q (Xzvc1KTT) 55 ml LVVED_BiP_Q (Znjo2FPB) 100 ml LVVES_BiP_Q (Jsci2ARQ) 45 ml HR_4Ch_Q (Hopt0ZDD) 62 bpm LVCO_4Ch_Q (Xrvb4ZGO) 2.8 l/min LVEF_4Ch_Q (Vldy4XDI) 52 % LVLd_4Ch_Q (Nnck9HMB) 8.3 cm LVLs_4Ch_Q (Tadg3UAX) 6.9 cm LVSV_4Ch_Q (Drtk4QYO) 45 ml LVVED_4Ch_Q (Axqg7QGA) 87 ml LVVES_4Ch_Q (Vywh9MTE) 42 ml HR_2Ch_Q (Czzp6AWR) 64 bpm LVCO_2Ch_Q (Rfmn5JXD) 4.2 l/min LVEF_2Ch_Q (Fhrr6JLE) 56 % LVLd_2Ch_Q (Vpun0KOX) 8.3 cm LVLs_2Ch_Q (Unos1RHI) 6.7 cm LVSV_2Ch_Q (Gyav9KPO) 65 ml LVVED_2Ch_Q (Rfzl3XER) 116 ml LVVES_2Ch_Q (Qkzg7MOG) 50 ml KARTIK AA peak sys SL (AWMA) 14.9 % AAS peak sys SL (AWMA) 13.9 % AI peak sys SL (AWMA) 25.3 % AL peak sys SL (AWMA) 12.7 % AP peak sys SL (AWMA) 8.0 % peak sys SL (AWMA) 17.7 % AVC (AWMA) 396 ms BA peak sys SL (AWMA) 19.3 % BAS peak sys SL (AWMA) 16.3 % BI peak sys SL (AWMA) 20.1 % BL peak sys SL (AWMA) 16.7 % BP peak sys SL (AWMA) 26.8 % BS peak sys SL (AWMA) 19.7 % G peak SL(A2C) (AWMA) 20.7 % G peak SL(A4C) (AWMA) 17.1 % G peak SL(APLAX) (AWMA) 18.1 % G peak SL(Avg) (AWMA) 18.6 % MA peak sys SL (AWMA) 18.2 % MAS peak sys SL (AWMA) 19.2 % IN peak sys SL (AWMA) 20.4 % ML peak sys SL (AWMA) 16.5 % MP peak sys SL (AWMA) 18.6 % MS peak sys SL (AWMA) 19.1 % Report Signatures
== END 2024-05-21 12:34 | disposition home or self-care (01) ==
PROVIDERS: PCP Family Medicine; Visit Provider Family Medicine
DX: R01.1 Cardiac murmur, unspecified (principal)
CPT/HCPCS: 93306

== ENCOUNTER 2024-06-29 09:00 | Outpatient (RCR) | payer OTHER, SELFPAY ==
--- NOTE | 2024-06-08 12:07 | OPREHPOC ---
Outpatient Therapy Plan of Care This is a Multidisciplinary Plan of Care that may contain components documented by all disciplines (PT, OT, and ST.) PT Problem 1 PT Problem #1 Knowledge Deficit PT Goal 1 Goal / Goal Update [place] with HEP Target Visit 4 PT Goal 1 Goal / Goal Update 1. Improve shana cervical rotation to 70+ degrees 2. Demonstrate symmetrical cervical side bending of 40+ degrees Target Visit 4 PT Problem 3 PT Problem #3 Impaired Strength PT Goal 1 Goal / Goal Update 1. Improve shana shoulder external rotation strength to 4+/5 to improve stability with self care 2. Improve shana periscapular strength to 4/5 to improve scapular stabilization for ADL performance Target Visit 4
--- NOTE | 2024-06-08 12:07 | PTOPEVAL1 ---
Assessment and note entered by Brian Quiles, PT Evaluation Information Assessment Status Evaluation ICD-10 Condition Codes (PT) Cervicalgia M54.2 Onset 5+ years Subjective Information Reports that she has had issues off and on since high school. She has had occasional bouts of pain and discomfort. She has headaches after exercising . Sleeping okay unless she has been lifting. Reports that she does have history of R hand radiculopathy. Her headaches feel like brain fog and tension in sub occipitals. Had therapy a long time ago. Reported Pain Level Pain Score 2: Self Report Assessment PT Clinical Summary Patient presents with classical scapular dyskinesia more prominent on right shoulder with chronic straining of right upper trapezius. Demonstrates weakness of shana rotator cuff and shoulder girdle with decreased functional cervical ROM. Will benefit from skilled therapy to address these deficits. Plan of Care Interventions Electrical Stimulation,Hot Pack/Cold Pack,Manual Therapy,Neuro Re-education,Therapeutic Activities, Therapeutic Exercise PT Services Indicated Yes Treatment Frequency and 1x/week for 4 visits Duration These treatments will address the objective and functional deficits as defined above. The patient will be advanced safely and appropriately in order for the patient to progress towards his/her prior level of function. Additional exercises will be introduced and as well as a comprehensive home exercise program upon discharge, if needed, ?to ensure carryover of functional gains achieved in the clinic. This treatment plan has been reviewed and agreement upon by the patient.
--- NOTE | 2024-06-29 09:52 | OPREHPOC ---
Outpatient Therapy Plan of Care This is a Multidisciplinary Plan of Care that may contain components documented by all disciplines (PT, OT, and ST.) PT Problem 1 PT Problem #1 Knowledge Deficit PT Goal 1 Goal / Goal Update [place] with HEP Target Visit 4 Progress Met PT Goal 1 Goal / Goal Update 1. Improve shana cervical rotation to 70+ degrees 2. Demonstrate symmetrical cervical side bending of 40+ degrees Target Visit 4 Progress Met PT Problem 3 PT Problem #3 Impaired Strength PT Goal 1 Goal / Goal Update 1. Improve shana shoulder external rotation strength to 4+/5 to improve stability with self care 2. Improve shana periscapular strength to 4/5 to improve scapular stabilization for ADL performance -Some weakness still noted Target Visit 4 Progress Partially Met
--- NOTE | 2024-06-29 09:52 | PTOPDC ---
Assessment and note entered by Brian Quiles, PT Evaluation Information Assessment Status Discharge ICD-10 Condition Codes (PT) Cervicalgia M54.2 Onset 5+ years Subjective Information Reports no current headaches and improvement in gross cervical pain and tenderness. Shoulders till feels a little weak but she has not been routinely dedicated to her HEP. Feels comfortable with discharge this date. Reported Pain Level Pain Score 0: Self Report Assessment PT Clinical Summary Patient has met majority of goals for therapy this date. No concerns with current progress at this time and suitable for discharge at [facility] with updated home exercise program. Plan of Care PT Services Indicated Yes
== END 2024-06-29 14:50 | disposition home or self-care (01) ==
LOC: ANHPT 09:00
PROVIDERS: PCP Family Medicine; Visit Provider Family Medicine
DX: M54.2 Cervicalgia (principal)
CPT/HCPCS: 97110; 97140; 97161

== ENCOUNTER 2024-09-23 07:50 | Outpatient (CLI) | payer OTHER, SELFPAY ==
--- NOTE | ~2024-09-23 | MMUS_ITS ---
EXAMINATION: MM diagnostic marlene BI w osmel, US breast RT complete HISTORY: Palpable right breast lumps TECHNIQUE: Additional 3-D tomosynthesis images of the breasts were performed and synthetic 2-D images were generated. CAD analysis was submitted and interpreted. High resolution complete right breast ul trasound was performed. COMPARISON: None BREAST PARENCHYMAL COMPOSITION: Dense: The breasts are heterogeneously dense, which may obscure small masses FINDINGS: MAMMOGRAPHIC FINDINGS: There are no suspicious masses, calcifications or architectural distortion in either breast to sugges t malignancy. ULTRASOUND: Complete US of all 4 quadrants of the right breast/s and retroareolar region was reviewed. Normal het erogeneous echotexture without focal solid or cystic mass. IMPRESSION: 1. No evidence for malignancy in either breast. 2. Routine yearly screening mammogram and regular clinical breast examination are recommended. BI-RADS Category 1: Negative Reviewed, dictated and finalized at location [] IMPRESSION: 1. No evidence for malignancy in either breast. 2. Routine yearly screening mammogram and regular clinical breast examination a re recommended. BI-RADS Category 1: Negative
== END 2024-09-23 07:51 | disposition home or self-care (01) ==
PROVIDERS: PCP Family Medicine; Visit Provider Obstetrics & Gynecology
DX: R92.8 Other abnormal and inconclusive findings on diagnostic imaging of breast (principal)
CPT/HCPCS: 76641; 77062; 77066; G0279

== ENCOUNTER 2025-01-20 11:20 | Outpatient (RCR) | payer OTHER, SELFPAY ==
[2025-01-20 11:54] VITALS: BMI 26.2
[2025-01-20 11:55] VITALS: BMI 26.2
--- NOTE | 2025-01-20 12:26 | PCDIET ---
Nutrition consult completed. Thank you for the referral!
== END 2025-04-05 09:14 | disposition home or self-care (01) ==
LOC: ANHDMC 11:20
PROVIDERS: PCP Family Medicine; Visit Provider Internal Medicine
DX: O24.419 Gestational diabetes mellitus in pregnancy, unspecified control (principal); Z3A.00 Weeks of gestation of pregnancy not specified; Z71.3 Dietary counseling and surveillance
CPT/HCPCS: 97802

== ENCOUNTER 2025-05-27 23:26 | Emergency (ER) | payer OTHER, SELFPAY ==
--- OUTSIDE RECORDS SUMMARY | 2015-04-17 18:00 | XMS_ITS | Continuity of Care Document ---
Author Organization [facility] Address [address] [place] [address] Phone Care Team Providers Care Cashier Checker Name Role Phone MD MANNING GILBERT Unavailable Unavailable Advance Directives Directive Yes / No Effective Date File Name No Information Encounters Encounter Description Practice Location Reason(s) For Visit Diagnoses Date Provider Providers Copied on Encounter [facility], [address] [facility], [place], [place], [id number], [place] tel:[phone] [facility] No Information MD MIRIAN MANNING. [address] [place] [address], [id number], [place]. tel:[phone] Referring Provider: RACHELE PACE, [address] [place] [address], [address]. tel:[phone] Family History Family Member Type Diagnosis Age At Onset No Information Payers Payer name Insurance type Covered green party ID Authoriza tipapo(s) [facility] POS [id number] CI [id number] Social History Type Description Quantity Date Captured Comments Sex Female Smoking Status No Information Chief Complaint And Reason For Visit No Information History Of Present Illness Encounter Date Complaint History Of Prese nt Illness No Information Instructions Date Instruction Additional Infor mation No Information Assessments Type Assessment Date No Information
[2025-05-27 23:27] VITALS: BP 143/95; PULSE 75; RESP 16; TEMP 36.8; O2SAT 97
--- OUTSIDE RECORDS SUMMARY | 2025-05-27 23:28 | XMS_ITS | Clinical Summary ---
Author Organization [facility] Tomasa lui - 2020 [address] [facility] [address] [place] [address] Phone Care Team Providers Care Dog Trainer Name Role Phone Unavailable Primary Care Provider Unavailabl e Social History Tobacco Use Types Packs/Day Years Used Date Smoking Tobacco: Never Assessed Comments Unknown Sex and Gender Information Value Date Recorded Sex Assigned at Not on file Legal Sex Female 9:07 AM CDT Gender Identity Not on file Sexual Orientation Not on file Plan of Treatment Health Maintenance Due Date Last Done Comments DTAP/TDAP/TD VACCINES (1 - Tdap) 10/17/2006 HEPATITIS B VACCINES (1 of 3 - 19+ 3-dose series) 10/06 HPV/Cotest (21-29) 10/17/2008 HPV VACCINES (1 - 3-dose SCDM series) 10/17/2014 CERVICAL CANCER SCREENING 10/17/2017 HPV/Cotest (30-65) 10/17/2017 PAP SMEAR 10/17/2017 INFLUENZA VACCINE (#1) 2025 Insurance [facility] [employer] PPO [id number] [facility] Address: [facility] [id number] [place] [address]
--- OUTSIDE RECORDS SUMMARY | 2025-05-27 23:28 | XMS_ITS | Data Portability ---
Author Organization [place] - [facility] [employer], Main Office Address [address] [place] [address] Assessment No assessment recorded. Plan of Treatment Reminders Order Date Submit Date Provider Last Modified By Organization Details Last Modified Time Details Appointments None recorded . Lab TSH + free T4, serum 023 01/12/20 [facility], [address], [address] [place], [place], [address], 3 15:46:36 lipid panel, serum 01/12/20 23 [employer] [facility], [address], [address] [place], [place], [address], 3 15:46:38 HbA1c (hemoglo bin A1c), blood 01/12/20 [facility], [address], [place] [place], [place], [address], 3 15:46:40 CBC w/ auto diff 023 01/12/20 23 [facility]AC[facility], [address], [place] [place], [place], [address], 3 15:46:41 CMP, serum or plasma 023 01/12/20 [facility], [address], [place], [place], [address], 3 15:46:39 Referral None recorded . Procedures None recorded . Surgeries None recorded . Imaging None recorded . Medication Orders None recorded . Patient TargetsNo targets recorded. Patient InstructionsNo instructions recorded. Reason for Referral None Reported. Results Created Date Observation Date Name Description Value Unit Range Abnormal Flag Note LastModifiedBy Organization Detail LastModifiedTime 02/10/2002/10/2023 TSH+F REE T4 TSH 1.44 mIU/L normal Refer ence Range > or = 20 Years 0.40- 4.50 Pregn tania Range s First trime ster 0.26- 2.66 Secon d trime ster 0.55- 2.73 Third trime ster 0.43- 2.91 Not Available [address], [address], 02/10/2023 15:46:36 02/10/20 23 02/10/2023 TSH+F REE T4 T4, free 1.1 NG/dL 0.8-1. 8 normal Not Available [address], [address], 02/10/2023 15:46:36 02/10/20 23 02/10/2023 LIPID PANEL WITH RATIO S cholesterol, total 176 mg/dL <200 normal Not Available [address], [address], 02/10/2023 15:46:38 02/10/20 23 02/10/2023 LIPID PANEL WITH RATIO S HDL cholesterol 46 mg/dL > or = 50 low Not Available [employer] [address], [address], 02/10/2023 15:46:38 02/10/20 23 02/10/2023 LIPID PANEL WITH RATIO S triglyceride s 87 mg/dL <150 normal Not Available [employer] [address], [address], 02/10/2023 15:46:38 02/10/20 23 02/10/2023 LIPID PANEL WITH RATIO S LDL-choleste rol 111 mg/dL _(beny c) high Refer ence range : <100 Josie able range <100 mg/dL for prima ry preve ntion ; <70 mg/dL for patie nts with CHD or diabe tic patie nts with > or = 2 CHD risk facto rs. LDL-C is now calcu lated using the Ann n-Hop kins calcu zunildacarol smith, which is a valid ated novel metho d roni landen adriana r accur acy than the Fried brittany equat ion in the estim ation of LDL-C . Ann smith SS et al. CHET. 2013; 310(1 9): 2061- 2068 (http ://ed ucati on.Qu [employer]. com/f aq/FA Q164) Not Available [employer] [facility] [address] [place], [address], 02/10/2023 15:46:38 02/10/20 23 02/10/2023 LIPID PANEL WITH RATIO S chol/HDLC ratio 3.8 (calc ) <5.0 normal Not Available [employer] [address] , [place], [address], 02/10/2023 15:46:38 02/10/20 23 02/10/2023 LIPID PANEL WITH RATIO S LDL/HDL ratio 2.4 (calc ) Below avera ge Risk: <2.34 Salem ge Risk: 2.35- 4.12 Moder ate Risk: 4.13- 5.56 High Risk: >5.57 Not Available [employer] [facility] [address] [place], [address], 02/10/2023 15:46:38 02/10/20 23 02/10/2023 LIPID PANEL WITH RATIO S non HDL cholesterol 130 mg/dL _(beny c) <130 high For patie nts with diabe tian plus 1 major ASCVD risk facto r, treat ing to a non-H DL-C goal of <100 mg/dL (LDL- C of <70 mg/dL ) is consi dered a thera peuti c optio n. Not Available [employer] [facility] [address] [place], [address], 02/10/2023 15:46:38 02/10/20 23 02/10/2023 COMPR EHENS ORESTES METAB OLIC PANEL glucose 101 mg/dL 65-99 high Fasti ng refer ence inter catherine For someo ne witho ut known diabe tian, a gluco se value betwe en 100 and 125 mg/dL is consi stent with predi abete s and shoul d be confi rmed with a follo w-up test. Not Available [address], [address], 02/10/2023 15:46:39 02/10/20 23 02/10/2023 COMPR EHENS ORESTES METAB OLIC PANEL urea nitrogen (BUN) 15 mg/dL 7-25 normal Not Available [address], [address], 02/10/2023 15:46:39 02/10/20 23 02/10/2023 COMPR EHENS ORESTES METAB OLIC PANEL creatinine 0.82 mg/dL 0.50-0 .97 normal Not Available [facility] [address], [address], 02/10/2023 15:46:39 02/10/20 23 02/10/2023 COMPR EHENS ORESTES METAB OLIC PANEL eGFR 96 mL/mi n/1.7 3m2 > or = 60 normal Not Available [address], [address], 02/10/2023 15:46:39 02/10/20 23 02/10/2023 COMPR EHENS ORESTES METAB OLIC PANEL BUN/creatini ne ratio SEE NOTE: (calc ) 6-22 Not Repor selwyn: BUN and Creat inine are withi n refer ence range . Not Available [facility] [address], [address], 02/10/2023 15:46:39 02/10/20 23 02/10/2023 COMPR EHENS ORESTES METAB OLIC PANEL sodium 139 mmol/ L 135-14 6 normal Not Available [address], [address], 02/10/2023 15:46:39 02/10/20 23 02/10/2023 COMPR EHENS ORESTES METAB OLIC PANEL potassium 4.2 mmol/ L 3.5-5. 3 normal Not Available [address], [address], 02/10/2023 15:46:39 02/10/20 23 02/10/2023 COMPR EHENS ORESTES METAB OLIC PANEL chloride 104 mmol/ L 98-110 normal Not Available [address], [address], 02/10/2023 15:46:39 02/10/20 23 02/10/2023 COMPR EHENS ORESTES METAB OLIC PANEL carbon dioxide 29 mmol/ L 20-32 normal Not Available [address], [address], 02/10/2023 15:46:39 02/10/20 23 02/10/2023 COMPR EHENS ORESTES METAB OLIC PANEL calcium 9.2 mg/dL 8.6-10 .2 normal Not Available [address], [address], 02/10/2023 15:46:39 02/10/20 23 02/10/2023 COMPR EHENS ORESTES METAB OLIC PANEL protein, total 6.6 g/dL 6.1-8. 1 normal Not Available [address], [address], 02/10/2023 15:46:39 02/10/20 23 02/10/2023 COMPR EHENS ORESTES METAB OLIC PANEL albumin 4.2 g/dL 3.6-5. 1 normal Not Available [address], [address], 02/10/2023 15:46:39 02/10/20 23 02/10/2023 COMPR EHENS ORESTES METAB OLIC PANEL globulin 2.4 g/dL_ (calc ) 1.9-3. 7 normal Not Available [address], [address], 02/10/2023 15:46:39 02/10/20 23 02/10/2023 COMPR EHENS ORESTES METAB OLIC PANEL albumin/glob ulin ratio 1.8 (calc ) 1.0-2. 5 normal Not Available [address], [address], 02/10/2023 15:46:39 02/10/20 23 02/10/2023 COMPR EHENS ORESTES METAB OLIC PANEL bilirubin, total 0.6 mg/dL 0.2-1. 2 normal Not Available [address], [address], 02/10/2023 15:46:39 02/10/20 23 02/10/2023 COMPR EHENS ORESTES METAB OLIC PANEL alkaline phosphatase 45 U/L 31-125 normal Not Available [address], [address], 02/10/2023 15:46:39 02/10/20 23 02/10/2023 COMPR EHENS ORESTES METAB OLIC PANEL AST 16 U/L 10-30 normal Not Available [address], [address], 02/10/2023 15:46:39 02/10/20 23 02/10/2023 COMPR EHENS ORESTES METAB OLIC PANEL ALT 12 U/L 6-29 normal Not Available [address], [address], 02/10/2023 15:46:39 02/10/20 23 02/10/2023 HEMOG LOBIN A1C hemoglobin A1C 5.6 %_of_ total _HGB <5.7 normal For the purpo se of marcella ogden for the prese nce of diabe tian: <5.7% Consi stent with the absen ce of diabe tian 5.7-6 .4% Consi stent with incre ased risk for diabe tian (pred iabet es) > or =6.5% Consi stent with diabe tian This assay resul t is consi stent with a decre ased risk of diabe tian. Curre ntly, no conse nsus exist s ana cristina schuster use of hemog lobin A1c for diagn osis of diabe tian in child willem. Accor ding to Ameri can Diabe tian Assoc iatio n (ADA) guide lines , hemog lobin A1c <7.0% repre sents optim al contr ol in non-p regna nt diabe tic patie nts. Diffe rent metri cs may apply to speci fic patie nt popul ation s. Stand ards of Medic al Care in Diabe tian(A DA). Not Available [address] [address] [place], [address], 02/10/2023 15:46:40 02/10/20 23 02/10/2023 CBC (INCL UDES DIFF/ PLT) white blood cell count 5.0 thous and/u L 3.8-10 .8 normal Not Available [address] [address] [place], [address], 02/10/2023 15:46:41 02/10/20 23 02/10/2023 CBC (INCL UDES DIFF/ PLT) red blood cell count 4.33 leonora on/uL 3.80-5 .10 normal Not Available [facility] [address] [address] [place], [address], 02/10/2023 15:46:41 02/10/20 23 02/10/2023 CBC (INCL UDES DIFF/ PLT) hemoglobin 12.9 g/dL 11.7-1 5.5 normal Not Available [facility] [address] [address] [place], [address], 02/10/2023 15:46:41 02/10/20 23 02/10/2023 CBC (INCL UDES DIFF/ PLT) hematocrit 38.4 % 35.0-4 5.0 normal Not Available [address], [address], 02/10/2023 15:46:41 02/10/20 23 02/10/2023 CBC (INCL UDES DIFF/ PLT) MCV 88.7 fL 80.0-1 00.0 normal Not Available [address], [address], 02/10/2023 15:46:41 02/10/20 23 02/10/2023 CBC (INCL UDES DIFF/ PLT) MCH 29.8 pg 27.0-3 3.0 normal Not Available [address], [address], 02/10/2023 15:46:41 02/10/20 23 02/10/2023 CBC (INCL UDES DIFF/ PLT) MCHC 33.6 g/dL 32.0-3 6.0 normal Not Available [address], [address], 02/10/2023 15:46:41 02/10/20 23 02/10/2023 CBC (INCL UDES DIFF/ PLT) RDW 12.4 % 11.0-1 5.0 normal Not Available [address], [address], 02/10/2023 15:46:41 02/10/20 23 02/10/2023 CBC (INCL UDES DIFF/ PLT) platelet count 227 thous and/u L 140-40 0 normal Not Available [address], [address], 02/10/2023 15:46:41 02/10/20 23 02/10/2023 CBC (INCL UDES DIFF/ PLT) MPV 10.3 fL 7.5-12 .5 normal Not Available [address], [address], 02/10/2023 15:46:41 02/10/20 23 02/10/2023 CBC (INCL UDES DIFF/ PLT) absolute neutrophils 2790 cells /uL 1500-7 800 normal Not Available [address], [address], 02/10/2023 15:46:41 02/10/20 23 02/10/2023 CBC (INCL UDES DIFF/ PLT) absolute lymphocytes 1635 cells /uL 850-39 00 normal Not Available [address], [address], 02/10/2023 15:46:41 02/10/20 23 02/10/2023 CBC (INCL UDES DIFF/ PLT) absolute monocytes 315 cells /uL 200-95 0 normal Not Available [address], [address], 02/10/2023 15:46:41 02/10/20 23 02/10/2023 CBC (INCL UDES DIFF/ PLT) absolute eosinophils 220 cells /uL 15-500 normal Not Available [address], [address], 02/10/2023 15:46:41 02/10/20 23 02/10/2023 CBC (INCL UDES DIFF/ PLT) absolute basophils 40 cells /uL 0-200 normal Not Available [facility] [address], [address], 02/10/2023 15:46:41 02/10/20 23 02/10/2023 CBC (INCL UDES DIFF/ PLT) neutrophils 55.8 % normal Not Available [facility] [address], [address], 02/10/2023 15:46:41 02/10/20 23 02/10/2023 CBC (INCL UDES DIFF/ PLT) lymphocytes 32.7 % normal Not Available [address], [address], 02/10/2023 15:46:41 02/10/20 23 02/10/2023 CBC (INCL UDES DIFF/ PLT) monocytes 6.3 % normal Not Available [address], [address], 02/10/2023 15:46:41 02/10/20 23 02/10/2023 CBC (INCL UDES DIFF/ PLT) eosinophils 4.4 % normal Not Available [address], [address], 02/10/2023 15:46:41 02/10/20 23 02/10/2023 CBC (INCL UDES DIFF/ PLT) basophils 0.8 % normal Not Available [address], [address], 02/10/2023 15:46:41 Result Notes None recorded. Problems Name Problem SNOMED Code Status Onset Date Resolution Date Notes Provider Name and Address Organization Details Recorded Time Heartburn 15157151 Active 2019 Not Available [facility] 3 20:55:40 Anemia 429674652 Active 2019 Not Available [facility] 3 20:55:40 Impacted cerumen of bilateral ears 9748754380660 108 Active 2021 Not Available [facility] 3 20:55:39 Streptococ beny sore throat 64571869 Active 2022 CINDY Owens [address], [place], [address] , [facility] [employer] [facility] 3 10:08:21 Dermatofib maddi of left lower limb 6045094834560 105 Active 2022 CINDY Owens [address], [place], [address] , [facility] [employer] 3 11:36:58 Upper respirator y infection 39540675 Active 2022 CINDY Owens [address] [facility] [address], [place], [address] , [facility] [employer] [facility] [employer] 3 12:35:09 Problem Notes None recorded. Medical Equipment None Reported. Allergies No known drug allergies Medications Name Sig Start Date Stop Date Status Note LastModified by Organization Details LastModified Time azithromyci n 250 mg tablet TAKE 2 TABLETS (500 MG) BY ORAL ROUTE ONCE DAILY FOR 1 DAY THEN 1 TABLET (250 MG) BY ORAL ROUTE ONCE DAILY FOR 4 DAYS 12/06 completed Not Available Not Available Not Available glyburide 5 mg tablet TAKE 1/2 (ONE-HALF ) TABLET BY MOUTH ONCE NIGHTLY AT BEDTIME 01/22 completed Not Available Not Available Not Available ofloxacin 0.3 % eye drops 07/10 completed Not Available Not Available Not Available fluconazole 150 mg tablet 07/10 completed Not Available Not Available Not Available famotidine 40 mg tablet Take 1 tablet every day by oral route with meals. 07/10 completed Not Available Not Available Not Available amoxicillin 875 mg tablet Take 1 tablet every 12 hours by oral route. 12/06 completed Not Available Not Available Not Available methocarbam ol 750 mg tablet Take 1 tablet 3 times a day by oral route as needed. active Not Available Not Available No t Available OneTouch Ultra Test strips USE TO TEST FOUR TIMES DAILY. 12/07 completed Not Available Not Available Not Available cephalexin 500 mg capsule 01/15 completed Not Available Not Available Not Available prednisone 50 mg tablet TAKE 1 TABLET BY MOUTH ONCE DAILY FOR 5 DAYS active Not Available Not Available No t Available omeprazole 20 mg capsule,del ayed release 01/15 completed Not Available Not Available Not Available Low-Ogestre l (28) 0.3 mg-30 mcg tablet active Not Available Not Available Not Available norethindro ne (contracept orestes) 0.35 mg tablet TAKE 1 TABLET BY MOUTH EVERY DAY 12/07 completed Not Available Not Available Not Available amoxicillin 875 mg-potassiu m clavulanate 125 mg tablet TAKE 1 TABLET BY MOUTH EVERY 12 HOURS active Not Available Not Available No t Available moxifloxaci n 0.5 % eye drops INSTILL 1 DROP INTO AFFECTED EYE(S) THREE TIMES DAILY 01/22 completed Not Available Not Available Not Available Ovi (28) 07/10 completed Not Available Not Available Not Available OneTouch Ultra2 Meter USE TO TEST FOUR TIMES DAILY. 12/07 completed Not Available Not Available Not Available OneTouch Delica Plus Lancet 33 gauge USE TO TEST FOUR TIMES DAILY. 12/07 completed Not Available Not Available Not Available Vitals Date Recorded Body mass index (BMI) Body height Oxygen saturation Heart rate Body temperature Body weight Systolic And Diastolic Provider Name and Address Organization Details Last Updated DateTime 1 26 kg/m2 157.48 cm 98 % 61 /min 98 [degF] 47505.8 4 g 110/80 mm[Hg] Not Available [facility] 3 20:55:14 Date Recorded Body height Body mass index (BMI) Body weight Body temperature Heart rate Systolic And Diastolic Provider Name and Address Organization Details Last Updated DateTime 3 157.48 cm 27.8 kg/m2 68277.0 4 g 97.7 [degF] 86 /min 122/86 mm[Hg] MARCO Blandon [place] [employer] 3 11:20:56 Date Recorded Body height Body mass index (BMI) Body weight Body temperature Heart rate Oxygen saturation Systolic And Diastolic Provider Name and Address Organization Details Last Updated DateTime 3 157.48 cm 27.6 kg/m2 84819.4 5 g 97.5 [degF] 68 /min 97 % 112/70 mm[Hg] Jagruti Appiah RN [employer] [facility] [employer] 3 08:41:55 Date Recorded Body mass index (BMI) Body height Oxygen saturation Heart rate Respiratory rate Body temperature Body weight Systolic And Diastolic Provider Name and Address Organization Details Last Updated DateTime 2 25.6 kg/m2 157.48 cm 98 % 62 /min 16 /min 97.8 [degF] 05558.9 3 g 118/78 mm[Hg] Not Available [facility] 3 20:55:14 Date Recorded Body height Body mass index (BMI) Body weight Body temperature Heart rate Oxygen saturation Systolic And Diastolic Provider Name and Address Organization Details Last Updated DateTime 3 157.48 cm 27.1 kg/m2 59063.6 7 g 97.6 [degF] 69 /min 98 % 118/70 mm[Hg] Jagruti Appiah RN [place] [facility] 3 11:35:46 Social History Question Answer Notes LastModified by Organizat ion Details LastModified Time Tobacco Smoking Status Never Smoker Not Available [employer] 09/05/2022 20:54:59 What Is Your Level Of Caffeine Consumption? Occasional [id number] Information not available 09/05/2022 How Much Tobacco Do You Chew? None [id number] Information not available 09/05/2022 In The 14 Days Before Symptom Onset, Have You Had Close Contact With A Laboratory-confirm ed COVID-19 While That Case Was Ill? No [id number] Information not available 09/05/2022 In The 14 Days Before Symptom Onset, Have You Had Close Contact With A Person Who Is Under Investigation For COVID-19 While That Person Was Ill? No [id number] Information not available 09/05/2022 What Type Of Diet Are You Following? REGULAR [id number].[id number] [id number] Information not available 09/05/2022 Which Illicit Or Recreational Drugs Have You Used? None [id number] Information not available 09/05/2022 Have There Been Any Changes To Your Family Or Social Situation? No [email or web address] Information no t available 12/06/2022 Do You Use Insect Repellent Routinely? No [email or web address] Information not available 12/06/2022 What Was The Date Of Your Most Recent Tobacco Screening? 12/07/2022 [email or web address] Information not available 12/07/2022 What Is Your Relationship Status? [email or web address] Information not available 12/06/2022 Do You Use Your Seat Belt Or Car Seat Routinely? Yes [email or web address] Information not available 12/06/2022 Do You Have Smoke And Carbon Monoxide Detectors In Your Home? Yes [email or web address] Information not available 12/06/2022 How Much Tobacco Do You Smoke? No [id number] [id number] Information not available 09/05/2022 Do You Use Sunscreen Routinely? Yes [email or web address] Information not available 12/06/2022 Have You Recently Traveled Abroad? No [id number] Information not available 09/05/2022 Do You Have Any Dietary Restrictions? No [email or web address] Information not available 12/06/2022 Sex: Unknown Functional Status Question Answer Note LastModified by Organizat ion Details LastModified Time Do you use any illicit or recreational drugs? No Information not available 12/06/2022 Do you or have you ever used any other forms of tobacco or nicotine? No Information not available 12/06/2022 What is your level of alcohol consumption? Occasional [id number] Information not available 09/05/2022 Do you or have you ever used smokeless tobacco? Never used smokeless tobacco MIGRATION.258739 3083 Information not available 09/05/2022 Are you currently employed? Yes [email or web address] Information not available 12/06/2022 What is your occupation? Teacher MIGRATION.223901 5779 Information not available 09/05/2022 Do you or have you ever used e-cigarettes or vape? Never used electronic cigarettes MIGRATION.372786 5015 Information not available 09/05/2022 What is your exercise level? Moderate MIGRATION.904565 8283 Information not available 09/05/2022 Mental Status None recorded. Family History Relationship Description Onset Age of this Age Resolved Age Notes LastModified by Organization Details LastModified Time Mother Thyroiditis MIGRATION.03 0 [id number] Not available 09/05/2022 20:55:07 Paternal Grandmother Heart disease [id number].178 [id number] Not available 09/05/2022 20:55:07 Paternal Grandmother Malignant neoplasm of breast MIGRATION.917 [id number] Not available 09/05/2022 20:55:07 Paternal Grandmother Thyroiditis MIGRATION.03 0 [id number] Not available 09/05/2022 20:55:07 Maternal Grandmother Malignant neoplasm of brain MIGRATION.569 [id number] Not available 09/05/2022 20:55:07 Sister Thyroiditis MIGRATION.03 0 [id number] Not available 09/05/2022 20:55:07 Medical History Condition Response EYE PROBLEMS Y HEADACHES/MIGRAINES Y BACK / NECK PROBLEMS Y HEARTBURN / REFLUX Y Gynecological HistoryNo gynecological history recorded. Obstetrics History GPAL:G 0 P 0 0 0 0 Immunizations Vaccine Type Date Status Note Provider Nam e and Address Organization Details Recorded Time Influenza, split virus, quadrivalent, preservative 1 completed Not Available [facility] 09/05/2022 20:56:40 Tdap 8 completed Not Available [facility] 09/05/2022 20:56:41 Past Encounters Encounter ID Performer Location Encounter Start Date Encounter Closed Date Diagnosis/Indication Diagnosis SNOMED-CT Code Diagnosis ICD10 Code Diagnosis IMO Codes Diagnosis Note [id number] CINDY Owens [facility] Internal Med [place] [address] [place] [address] 09/23/2020 00:00:00 09/24/2020 16:05:36 [id number] CINDY Owens [facility] Internal Med [place] [address] [place] [address] 12/01/2020 00:00:00 12/01/2020 18:58:15 [id number] Jesus Granados MD [facility] Internal Med [place] [address] [place] [address] 01/22/2022 00:00:00 02/03/2022 22:39:42 [id number] CINDY Owens [facility] Internal Med [place] [address] [place] [address] 12/07/2022 11:12:05 12/07/2022 11:30:20 Dermatofibroma of left lower limb 9937183620 676270 D23.72 monitor. can see Derm for excision when ready for removal. [id number] CINDY Owens [facility] Internal [facility] [place] [address] [place] [address] 01/11/2023 08:35:36 01/11/2023 08:57:00 Adult health examination 600372335 Z00.00 well exam completed and annual labs ordered. Cholesterol screening 27 1634239 Z13.220 Diabetes m ellitus screening 678183304 Z13.1 Thyroid di sorder screening 230289368 Z13.29 [id number] CINDY Owens [facility] Internal [facility] [place] [address] [place] [address] 04/10/2023 11:31:25 04/10/2023 11:46:41 History of herpes zoster 1745385554 65028 Z86.19 right posterior flank region near midline. healed shingles croppings noted, residual erythema only. no further orders. original rash was painful, burned and tingling and onset 4 weeks ago. Health Concerns Section Related Observation LastModified by Organization Detai ls LastModified Time None Recorded Concern Status LastModified by Organization Details LastModified Time None Recorded Advance Directives Directive None Recorded Payers Insurance Date Sequence Insurance Name Policy Number Policy Guevara Covered Member ID Guevara Member ID Guarantor Name 04/10/2023 1 [facility] [id number] Bryanna Davenport [id number] Bryanna Davenport 05/08/2023 1 [employer] (POS) [id number] Basilio Davenport [id number] Bryanna Davenport Notes Date Note Type Note Provider Name and Address Organization Details Recorded Time 12/07/2022 text/html Generic HPI TemplateReported by PatientHPIFor location, (left upper thigh). For quality, (small red). For severity, (no change). For duration, (month). For aggravating factors, (none).bump left upper thigh CINDY Owens [address], [place], [address], [employer] 12/30/2022 10:44:05 01/11/2023 text/html Generic HPI TemplateReported by Patient wellness CINDY Owens [address], [place], [address], [employer] 02/03/2023 00:26:59 04/10/2023 text/html Generic HPI TemplateReported by PatientHPIFor location, (back). For quality, (red itchy painful spots on back). For severity, (almost resolved). For duration, (about a month). pt here for c/o spots on back CINDY Owens [address], [place], [address], [place] [facility] 05/07/2023 17:06:10 OBGyn Episode No OBEpisode recorded.
--- OUTSIDE RECORDS SUMMARY | 2025-05-27 23:28 | XMS_ITS | Data Portability ---
[facility] Organization [facility] Address [address] [place] [address] Assessment No assessment recorded. Plan of Treatment Reminders Order Date Submit Date Provider Last Modified By Organization Details Last Modified Time Details Appointments None recorded . Lab HbA1c (hemoglo bin A1c), blood 024 [facility], [address], [place], [address], 5 16:33:06 lipid panel, serum 024 01/31/20 24 [facility], [address], [address], [place], [address], 5 16:33:10 CMP, serum or plasma 024 01/31/20 24 [email or web address], [address], [address], [place], [address], 5 16:33:19 CBC w/ auto diff 024 01/31/20 24 [email or web address], [address], [address], [place], [address], 5 16:33:14 Referral None recorded . Procedures None recorded . Surgeries None recorded . Imaging None recorded . Medication Orders None recorded . Patient TargetsNo targets recorded. Patient InstructionsNo instructions recorded. Reason for Referral None Reported. Results Created Date Observation Date Name Description Value Unit Range Abnormal Flag Note LastModifiedBy Organization Detail LastModifiedTime Result Notes None recorded. Problems Name Problem SNOMED Code Status Onset Date Resolution Date Notes Provider Name and Address Organization Details Recorded Time Prediabetes 748978204 Active 2023 CINDY Owens Attn: Lory valencia,[address] [place], [address], [facility] 4 00:57:06 Body mass index 25-29 - overweight 764962303 Active 2023 CINDY Owens Attn: Lroy valencia,[address] [facility], [place], [address], [facility] 4 00:57:29 Problem Notes None recorded. Medical Equipment None Reported. Allergies No known drug allergies Medications Name Sig Start Date Stop Date Status Note LastModified by Organization Details LastModified Time amoxicillin 500 mg capsule TAKE 1 CAPSULE BY MOUTH TWICE DAILY FOR 10 DAYS 01/30 completed Not Available Not Available Not Available fluconazole 150 mg tablet TAKE 1 TABLET BY MOUTH DIRECTED 01/30 completed Not Available Not Available Not Available amoxicillin 875 mg-potassiu m clavulanate 125 mg tablet TAKE 1 TABLET BY MOUTH EVERY 12 HOURS 01/30 completed Not Available Not Available Not Available Vitals Date Recorded Systolic And Diastolic Provider Name and Address Organization Details Last Updated DateTime 01/31/2024 120/80 mm[Hg] CINDY Owens Attn: Accounting,[address] [facility], [place], [address], [facility] 01/31/2024 10:05:18 Date Recorded Body height Body mass index (BMI) Body weight Oxygen saturation Body temperature Heart rate Systolic And Diastolic Provider Name and Address Organization Details Last Updated DateTime 4 157.48 cm 28 kg/m2 69928.6 3 g 98 % 97.8 [degF] 64 /min 110/82 mm[Hg] Christiano Lagunas MA [facility] 4 09:44:20 Social History Question Answer Notes LastModified by Organizat ion Details LastModified Time Tobacco Smoking Status Never Smoker Christiano Lagunas MA null, [facility] 01/31/2024 09:45:24 What Was The Date Of Your Most Recent Tobacco Screening? 01/31/2024 Information not available 01/31/2024 Has Tobacco Cessation Counseling Been Provided? No Information not available 01/31/2024 Sex: Female Functional Status Question Answer Note LastModified by Organizat ion Details LastModified Time Do you or have you ever used any other forms of tobacco or nicotine? No Information not available 01/31/2024 What is your level of alcohol consumption? Occasional wine Information not available 01/31/2024 Mental Status None recorded. Family History Relationship Description Onset Age of this Age Resolved Age Notes LastModified by Organization Details LastModified Time Mother Disorder of thyroid gland [email or web address] Not available 09:44:38 Sister Disorder of thyroid gland [email or web address] Not available 09:44:38 Sister Hypertensive disorder [email or web address] Not available 09:44:51 Father Hypertensive disorder [email or web address] Not available 09:44:51 Medical History Condition Response Coronary Artery Disease N Other N High Blood Pressure N Atrial Fibrillation N Kidney or Bladder Problems N Thyroid Problems N GI Problems N Depression N COPD N Blood Clots N Have you had a mammogram in the last yea r? N Skin Problems N Anemia Y Heart Attack (NC) N Anxiety Disorder N Diabetes N Muscle, Joint, or Bone Problems N Seizures/Epilepsy N Have you had a colonoscopy in the last 1 0 years? N Acid Reflux (GERD) N Cancer N Stroke N Asthma N Allergies N Have you had a PSA blood test in the las t year? N High Cholesterol N Hepatitis N Liver Disease N Headaches N Heart Failure N Osteoporosis N Gynecological HistoryNo gynecological history recorded. Obstetrics History GPAL:G 0 P 0 0 0 0 Past Encounters Encounter ID Performer Location Encounter Start Date Encounter Closed Date Diagnosis/Indication Diagnosis SNOMED-CT Code Diagnosis ICD10 Code Diagnosis IMO Codes Diagnosis Note [id number] Jesus Granados MD [facility] [address] [place] [address] 01/31/2024 09:31:07 01/31/2024 10:26:06 Adult health examination 980910675 Z00.00 Annual wellness completed with CBC and CMP ordered Prediabetes 187489046 R7 3.03 Patient will repeat a hemoglobin A1c in July. discussed healthy diet, exercise, controllin g carbohydra tian and added sugars in the diet Cholesterol screening 27 2981964 Z13.220 Fasting lipid panel is due for annual review Low back pain 774620860 M54.50 Patient take over-the-c ounter NSAID, use muscle rub cream or Voltaren gel. She can alternate ice and heat and perform some gentle stretches at home Body mass index 25-29 - overweight 637437007 Z68.28 BMI is 28 Health Concerns Section Related Observation LastModified by Organization Detai ls LastModified Time None Recorded Concern Status LastModified by Organization Details LastModified Time None Recorded Advance Directives Directive None Recorded Payers Insurance Date Sequence Insurance Name Policy Number Policy Guevara Covered Member ID Guevara Member ID Guarantor Name 02/11/2024 1 [employer] (POS II) Basilio Davenport [id number] Bryanna Davenport Notes Date Note Type Note Provider Name and Address Organization Details Recorded Time 01/31/2024 text/html Patient is here for annual wellness exam. Her heat reader faxed us a copy of a lab order in which they found an A1c of 6.1%. She now has prediabetes. She also has a history of some low back pain. CINDY Owens Attn: Accounting,[address] [place], [address], [facility] 02/06/2024 00:57:46 OBGyn Episode No OBEpisode recorded.
[2025-05-28 01:59] LABS: Hematocrit 41.4 % (37.0-47.0); Hemoglobin 14.7 g/dL (12.0-15.0); Immature Granulocyte Percent A 0.1 % (0-0.5); Lymphocytes Absolute Auto 2.87 K/mm3 (0.9-3.2); Mean Corpuscular HGB Conc 35.5 g/dl (32-36); Mean Corpuscular Hemoglobin 29.8 pg (26-34); Mean Corpuscular Volume 83.8 fl (80-100); Nucleated Red Blood Cells Absolute Auto 0.000 K/mm3 (0.0-0.012); Nucleated Red Blood Cells Perc 0.0 % (0.0-0.2); Platelet Count Result 257 k/mm3 (150-375); Red Blood Count 4.94 M/mm3 (4.2-5.4); White Blood Count 7.4 K/mm3 (4.5-10.0)
[2025-05-28 02:05] LABS: Add Urine Microscopic? YES; Appearance Urine Clear (Clear); Glucose Urine UA 3+ mg/dL (Negative); Leukocyte Esterase Ur Negative LEU/UL (Negative); Nitrate Urine Negative (Negative); Non Pathogenic Casts 0-2; Specific Grav Ur 1.045 (1.001-1.035)
[2025-05-28 02:14] LABS: Alanine Aminotransferase 22 U/L (6-35); Albumin Level 4.9 g/dL (3.5-5.1); Alkaline Phosphatase 59 U/L (38-126); Anion Gap 12 mmol/L (4-12); Aspartate Amino Transferase 31 U/L (14-36); Bilirubin,Total 0.9 mg/dL (0.2-1.3); Blood Urea Nitrogen 26 mg/dL (7-17); Calcium 9.7 mg/dL (8.4-10.2); Carbon Dioxide 25 mmol/L (22-30); Chloride 96 mmol/L (98-107); Estimated Glomerular Filt Rate > 60; Glucose 298 mg/dL (65-110); Magnesium 1.8 mg/dL (1.6-2.3); Potassium 4.1 mmol/L (3.4-5.0); Sodium 133 mmol/L (137-145); Total Protein 8.2 g/dL (6.3-8.2)
[2025-05-28 02:18] VITALS: BP 117/83; PULSE 67; RESP 16; O2SAT 98
[2025-05-28] MEDS: LACTATED RINGERS 1,000 ML 999 ML IV CONT ×2 (02:38)
--- NOTE | 2025-05-28 02:52 | ED_ITS ---
HPI - Recheck/Abnormal Lab/Rx General Chief Complaint: Recheck/Abnormal Lab/Rx Stated Complaint: blood sugar high Time Seen by Provider: 05/28/25 02:30 History of Present Illness HPI narrative: 39-year-old female with a history of gestational diabetes during previous pregnancies presenting to the emergency department as she was having elevated blood sugars. No current but she got routine blood work done outpatient showed that she was now diabetic with an A1c of almost 11. She has been having symptoms including polyuria and polydipsia but no other complaints. She came to the ER as her sugars at home were in the 300 range. Not any antidiabetic medications or insulin. Was otherwise in her normal state of health. Her previous gestational diabetes with controlled with small dose of glyburide but no other injectables. Was otherwise in her normal state of health. Denies any complaints at this time and just wants her blood sugar level more better controlled as she has a follow-up already with her PCP and rubber ball finisher to better address her diabetes. Related Data Home Medications ?Medication ?Instructions ?Recorded ?Confirmed ?Last Taken ?Type vitamins no.102-iron 90 1 cap PO DAILY 04/22/25 Unknown History mg-folate 1 mg-dha 200 mg capsule Allergies Allergy/AdvReac Type Severity Reaction Status Date / Time No Known Allergies Allergy Verified 05/27/25 23:27 Review of Systems 2 Review of Systems: As reviewed above in HPI [facility] Past Medical History Medical History Heart murmur Prediabetes Gestational diabetes mellitus (GDM) affecting Surgical History Surgical History [place] teeth removed (normal spontaneous vaginal delivery) 2015, 2017, 2021 Family History Family History Grandparent Family history of malignant neoplasm of brain Family history of malignant neoplasm of breast Father Hypertension Social History Social History Smoking status: Never smoker Second hand tobacco smoke exposure: No Alcohol intake: current Substance use: never Substance use type: does not use Living arrangements: with family Occupation/Education: occupation Gender identity (if verbalized by the patient): Female Sexual Orientation (if Verbalized by the Patient): Straight or Heterosexual Spiritual care concerns: No Agree to blood products: Yes Exam 2 Narrative: GENERAL: [Well-appearing, well-nourished, and in no acute distress.] HEAD: [Normocephalic, atraumatic.] EYES: [PERRLA and EOMI.] ENT: Nares clear, no rhinorrhea or epistaxis. Mucous membranes moist. NECK: Supple. CHEST: [Clear to auscultation. No respiratory distress.] HEART: [Regular rate and rhythm]. No murmur heard. [Normal peripheral pulses.] ABDOMEN: [Soft, nondistended], [nontender], [No rigidity or guarding] EXTREMITIES: Normal range of motion. [No edema.] SKIN: Warm, dry, no rash. NEURO: [No focal deficits]. Alert and oriented [x3.] PSYCH: [Normal mood and affect.] Course Vital Signs Vital signs: Vital Signs Temperature 36.8 C 05/27/25 23: Pulse Rate 75 05/27/25 23:27 Respiratory Rate 16 05/27/25 23:27 Blood Pressure 143/95 H 05/27/25 23:27 Pulse Oximetry 97 05/27/25 23:27 Oxygen Delivery Room Air 05/27/25 23:27 Temperature 36.8 C 05/27/25 23:27 Pulse Rate 57 L 05/28/25 04:00 Respiratory Rate 16 05/28/25 04:00 Blood Pressure 131/87 05/28/25 04:00 Pulse Oximetry 99 05/28/25 04:00 Oxygen Delivery Room Air 05/27/25 23:27 MDM - Recheck/Abnormal Lab/Rx MDM Narrative Medical decision making narrative: 39-year-old female with a history of gestational diabetes during previous pregnancies presenting to the emergency department as she was having elevated blood sugars. No current but she got routine blood work done outpatient showed that she was now diabetic with an A1c of almost 11. She has been having symptoms including polyuria and polydipsia but no other complaints. She came to the ER as her sugars at home were in the 300 range. Not any antidiabetic medications or insulin. Was otherwise in her normal state of health. Her previous gestational diabetes with controlled with small dose of glyburide but no other injectables. Was otherwise in her normal state of health. Denies any complaints at this time and just wants her blood sugar level more better controlled as she has a follow-up already with her PCP and rubber ball finisher to better address her diabetes. Patient is overall very well-appearing not any acute distress. States she feels slightly thirsty but overall appears hydrated. Laboratory studies obtained. Urinalysis and test ordered. She was given fluid hydration here. Blood work shows a glucose of almost 300. No signs of anion gap her ketosis. Normal electrolytes otherwise. She was given fluids and a small 6 units of insulin to better control her glucose and will be safe for discharge afterwards she ready has appropriate follow-up care to better control her diabetes on outpatient management basis and does not need to be initiated on new medications at this time in the ER. Patient expressed understanding of the plan instructions and felt comfortable with plan for going home with follow-up. Medical Records Attestation: I reviewed the patient's medical records. Lab Data Attestation: I reviewed the patient's lab results. 05/28/25 01:53 05/28/25 01:53 Labs: Lab Results 05/28/25 05/28/25 05/28/25 Range/Units 01:47 01:53 04:15 WBC 7.4 (4.5-10.0) K/mm3 RBC 4.94 (4.2-5.4) M/mm3 Hgb 14.7 D (12.0-15.0) g/dL Hct 41.4 (37.0-47.0) % MCV 83.8 (80-100) fl MCH 29.8 (26-34) pg MCHC 35.5 (32-36) g/dl RDW 11.9 (11.5-14.5) % Plt Count 257 (150-375) k/mm3 MPV 10.2 (7.4-10.4) fl Immature Gran % (Auto) 0.1 (0-0.5) % Neut % (Auto) 47.7 (45.5-73.1) % Lymph % (Auto) 38.7 (18.3-44.2) % [place] % (Auto) 8.1 (2.6-8.5) % Eos % (Auto) 4.5 H (0-4.4) % Baso % (Auto) 0.9 (0.2-1.2) % Lymph # (Auto) 2.87 (0.9-3.2) K/mm3 [place] # (Auto) 0.6 (0.1-0.6) K/mm3 Eos # (Auto) 0.3 (0-0.3) K/mm3 Baso # (Auto) 0.1 (0.0-0.1) K/mm3 Abs Immat Gran (auto) 0.01 (0.00-0.031) K/mm3 Absolute Neuts (auto) 3.5 (1.3-6.7) K/mm3 Absolute Nucleated RBC 0.000 (0.0-0.012) K/mm3 Nucleated RBC % 0.0 (0.0-0.2) % Sodium 133 L (137-145) mmol/L Potassium 4.1 (3.4-5.0) mmol/L Chloride 96 L (98-107) mmol/L Carbon Dioxide 25 (22-30) mmol/L Anion Gap 12 (4-12) mmol/L BUN 26 H (7-17) mg/dL Creatinine 0.65 L (0.7-1.0) mg/dL Estim Creat Clear Calc Not Reportable Estimated GFR > 60 (59 - ) Glucose 298 H (65-110) mg/dL POC Capillary Glucose 322 H 249 H (65-105) mg/dl Calcium 9.7 (8.4-10.2) mg/dL Phosphorus 4.0 (2.5-4.5) mg/dL Magnesium 1.8 (1.6-2.3) mg/dL Total Bilirubin 0.9 (0.2-1.3) mg/dL AST 31 (14-36) U/L ALT 22 (6-35) U/L Alkaline Phosphatase 59 (38-126) U/L Total Protein 8.2 (6.3-8.2) g/dL Albumin 4.9 (3.5-5.1) g/dL Urine Color Yellow (Yellow) Urine Appearance Clear (Clear) Urine pH 5.0 (5.0-9.0) Ur Specific [place] 1.045 H (1.001-1.035) Urine Protein Negative (Negative) mg/dL Urine Glucose (UA) 3+ H (Negative) mg/dL Urine Ketones 3+ H (Negative) mg/dL Ur Blood (Man) 3+ H (Negative) Urine Nitrate Negative (Negative) Urine Bilirubin Negative (Negative) Urine Urobilinogen 0.2 (<2.0) mg/dL Leukocyte Esterase Rfl Negative (Negative) WM/UL Urine RBC 21-50 H (0-2) /hpf Urine WBC 0-5 (0-3) /hpf Ur Squamous Epith Cells Occasional (Few) /hpf Urine Bacteria None seen /hpf Urine Casts 0-2 Discharge Plan Discharge Clinical Impression: Hyperglycemia due to type 2 diabetes mellitus Patient Disposition: Home Condition: Stable Instructions: Antibiotic Form Additional Instructions: Follow-up with your primary care provider and rubber ball finisher for better blood sugar control outpatient. Return with any emergencies. Maintain good oral intake to prevent dehydration. Return with any emergent issues such as uncontrolled nausea vomiting, abdominal pain, losing consciousness or any other issues. Patient Language: Albanian Prescriptions: No Action (DME) Dexcom G7 Sensor Device See Rx Instructions .Route Qty: 1 0RF Rx Instructions: As directed PNV 158-ywlq-dvrcpl-dha 90 mg iron- 1 mg-200 mg capsule 1 cap PO DAILY Follow-up/Referrals: Bart Bryant MD [Primary Care Provider, [facility]] Time of Disposition: 03:43
[2025-05-28 03:00] VITALS: BP 124/80; PULSE 57; RESP 18; O2SAT 99
[2025-05-28] MEDS: INSULIN ASPART (*BKC) 100 UNITS/ML 6 UNITS SUB-Q (03:49)
[2025-05-28 04:00] VITALS: BP 131/87; PULSE 57; RESP 16; O2SAT 99
[2025-05-31 11:47] LABS: BEDSIDEPREGUCG Negative (Negative)
== END 2025-05-28 04:31 | disposition home or self-care (01) ==
PROVIDERS: Emergency Provider Student in an Organized Health Care Education/Training Program; PCP Family Medicine
DX: E11.65 Type 2 diabetes mellitus with hyperglycemia (principal)
CPT/HCPCS: 36415; 80053; 81001; 81025; 82948; 83735; 84100; 85025; 96360; 99283; J1815; J7120